=== PATIENT | female | born 1980 | race American Indian/Alaskan Native ===

== ENCOUNTER 2016-07-21 06:42 | Emergency (ER) | payer MEDICAID ==
[2016-07-21 07:45] VITALS: BP 114/80
--- NOTE | 2016-07-21 09:57 | Emergency Department Report ---
HPI - General Chief Complaint: Sore Throat Time Seen by Provider: 07/21/16 09:44 - HPI HPI: Patient here reports sore throat since Wednesday night. Reports pain is located on the LT side of her throat and is radiating into her left ear. She reports chills and said she had a fever last night she says she took some Motrin. Pain is 9 out of 10 and sore. Pain is worse with swallowing. Denies any drooling, difficulty breathing or chest pain. Denies any respiratory symptoms. Denies any cough or nasal congestion. ED Past Medical Hx - Past Medical History Previous Medical History?: No Hx Hypertension: No Hx Congestive Heart Failure: No Hx Diabetes: No Hx Deep Vein Thrombosis: No Hx Renal Disease: No Hx Sickle Cell Disease: No Hx Seizures: No Hx Asthma: No Hx COPD: No Hx HIV: No - Surgical History Past Surgical History?: Yes Additional Surgical History: D&C - Family History Family history: no significant - Social History Smoking Status: Never Smoker Substance Use Type: None - Medications Home Medications: Home Medications Medication Instructions Recorded Confirmed Last Taken Type Hydrocodone Bit/Acetaminophen 1 tab PO Q4-6H PRN #16 tablet 04/19/13 06/10/15 Unknown Rx [Lortab 10-500 Tablet] predniSONE [Deltasone] 20 mg PO TID #9 tablet 04/19/13 06/10/15 Unknown Rx Promethazine [Phenergan TAB] 25 mg PO Q6HR PRN #14 tab 01/02/16 Unknown Rx traMADol [Ultram] 50 mg PO Q6HR PRN #10 tablet 01/02/16 Unknown Rx Amoxicillin [Amoxicillin TAB] 875 mg PO BID #20 tablet 07/21/16 Unknown Rx Ibuprofen [Motrin] 600 mg PO Q8H PRN #15 tablet 07/21/16 Unknown Rx ED Review of Systems ROS: Stated complaint: THROAT SWELLING Other details as noted in HPI Comment: All other systems reviewed and negative Constitutional: chills, fever Eyes: denies: eye discharge ENT: ear pain, throat pain. denies: congestion Respiratory: no symptoms reported Cardiovascular: denies: chest pain, palpitations, edema, syncope Gastrointestinal: denies: abdominal pain, nausea, vomiting Skin: denies: rash Neurological: denies: headache Physical Exam - Physical Exam Vital Signs: Vital Signs 07/21/16 07:42 Temperature 98.4 F Pulse Rate 87 Respiratory 18 Rate Blood Pressure 114/80 O2 Sat by Pulse 100 Oximetry General: This is a 35-year-old female well-nourished well-developed in no acute distress. Physical Exam: Head: Normocephalic atraumatic Mouth: Moist, no pharyngeal exudate with positive erythema. Uvula is midline and oral airway is patent. No gingival enlargement or dental tenderness. No facial swelling. No peritonsillar abscesses. Neck: Supple, no C-spine tenderness, no tracheal deviation. Nontender to palpate.Positive adenopathy Ears: Bilateral TMs pearly montejo.bilateral EAC without any redness swelling or drainage Eyes: Bilateral pupils equal and reactive to light, bilateral EOM intact. Bilateral sclera and conjunctiva without injection. Normal accommodation Nose: Mucosa moist, normal mucosa .positive clear drainage. maxillary and frontal sinus non-tender to palpate. Lungs: Clear to auscultate bilaterally no rhonchi wheezes or rales. Normal work of breathing extremity; No CCE. +2 pulses. No neurovascular compromise Cardiovascular: S1-S2, regular rate rhythm. No murmurs. Skin: clean Dry and intact no rash no lesions Psych: Normal mood and behavior ED Course Vital Signs 07/21/16 07:42 Temperature 98.4 F Pulse Rate 87 Respiratory 18 Rate Blood Pressure 114/80 O2 Sat by Pulse 100 Oximetry - Reevaluation(s) Reevaluation #1: 07/21/16 10:48 She given Motrin 800 mg in emergency room for sore throat. ED Medical Decision Making - Lab Data Positive strep - Medical Decision Making ED course: Patient here complaining of sore throat, fever over the past couple days. Strep test positive. She was discussed with patient. Treatment plan discussed with patient and she is in agreement. See Motrin 800 mg one by mouth. discharged home with prescription for Motrin and amoxicillin and to follow-up with her primary care physician in 2-3 days Critical care attestation.: If time is entered above; I have spent that time in minutes in the direct care of this critically ill patient, excluding procedure time. ED Disposition Clinical Impression: Strep pharyngitis Disposition: DISCHARGED TO HOME OR SELFCARE Is pt being admited?: No Does the pt Need Aspirin: No Condition: Stable Instructions: Strep Throat (ED) Additional Instructions: Please increase her fluid intake. Please gargling with warm salt water Take medication as prescribed. Practice good hand hygiene Prescriptions: Amoxicillin [Amoxicillin TAB] 875 mg PO BID #20 tablet Ibuprofen [Motrin] 600 mg PO Q8H PRN #15 tablet PRN Reason: Pain Referrals: PRIMARY CAREMD [Primary Care Provider] - 2-3 Days SEROTOFF,MD FORREST [Emergency Provider] - 3-5 Days Forms: Work/School Release Form(ED)
[2016-07-21] MEDS ORDERED: MOTRIN PO ONE (10:31)
== END 2016-07-21 11:32 | disposition home or self-care (01) ==
LOC: ED 06:42
DX: J02.0 Streptococcal pharyngitis (principal)
CPT/HCPCS: 87430; 99282

== ENCOUNTER 2017-02-18 07:16 | Day surgery (SDC) | payer MEDICAID ==
[~2017-02-18 07:16] MED LIST: MARCAINE 0.5% INFILTRATI ONE; NACL 0.9% IR ONE
[2017-02-18] MEDS ORDERED: DIPRIVAN 10 MG/ML IV ONE (08:29)
[2017-02-18] MEDS ORDERED: XYLOCAINE MPF 2% ONE (08:30)
[2017-02-18] MEDS ORDERED: SUBLIMAZE ONE (08:30)
[2017-02-18 08:36] LABS: Hematocrit 41.3 % (30.3-42.9); Hemoglobin 13.5 gm/dl (10.1-14.3)
--- NOTE | 2017-02-18 08:40 | Short Stay Summary ---
Short Stay Documentation Date of service: 02/18/17 Narrative H&P: Pt is a 36yo BF LMP 01/23/17 presents for permanent sterilization - History Principal diagnosis: Desires permanent sterilization H&P: obtained from office Past Medical History: No medical history Past Surgical History: No surgical history Social history: no significant social history, single - Allergies and Medications Current Medications: Allergies No Known Allergies Allergy (Verified 02/17/17 07:50) Home Medications Medication Instructions Recorded Confirmed Last Taken Type No Known Home Medications [No 02/17/17 02/17/17 Unknown History Reported Home Medications] - Physical exam General appearance: no acute distress Integumentary: no rash HEENT: Atraumatic Lungs: Clear to auscultation Breasts: deferred Heart: Regular rate Gastrointestinal: normal Female Genitourinary: deferred Rectal Exam: deferred Extremities: no ischemia Neurological: Normal gait, Normal speech - Brief post op/procedure progress note Date of procedure: 02/18/17 Pre-op diagnosis: Desires permanent sterilization Post-op diagnosis: same Procedure: Laproscopic Bilateral Tubal Ligation Anesthesia: GETA Findings: Normal uterus. Normal tubes and ovaries bilaterally. Surgeon: ERIKA WOOD Estimated blood loss: minimal Pathology: none Condition: stable - Hospital course Hospital course: Unremarkable. - Disposition Condition at discharge: Good Disposition: DC-01 TO HOME OR SELFCARE - Discharge Diagnoses (1) Encounter for sterilization Status: Resolved Short Stay Discharge Plan Activity: no restrictions Diet: regular Wound: open to air, keep clean and dry Follow up with: PRIMARY CAREMD [Primary Care Provider] - 7 Days ERIKA WOOD MD [Staff Physician] - 14 Days Prescriptions: HYDROcodone/APAP 5-325 [[place] 5/325] 1 each PO Q6HR PRN #20 tablet PRN Reason: Pain
--- NOTE | 2017-02-18 08:49 | Anesthesia Consultation ---
Anesthesia Consult and Med Hx Date of service: 02/18/17 - Airway Anesthetic Teeth Evaluation: Good ROM Head & Neck: Adequate Mental/Hyoid Distance: Adequate Mallampati Class: Class II Intubation Access Assessment: Good - Pulmonary Exam CTA: Yes - Cardiac Exam Cardiac Exam: No Murmur - Pulmonary Hx Smoking: Yes Hx Asthma: No COPD: No Hx Pneumonia: No - Cardiovascular System Hx Hypertension: No - Central Nervous System Hx Seizures: No Hx Psychiatric Problems: No - Endocrine Hx Renal Disease: No Hx End Stage Renal Disease: No Hx Hypothyroidism: No Hx Hyperthyroidism: No - Hematic Hx Anemia: No Hx Sickle Cell Disease: No - Other Systems Hx Alcohol Use: Yes (occas) Hx Cancer: No
[2017-02-18] MEDS ORDERED: MARCAINE 0.5% 30 ML INFILTRATI ONE (08:53)
--- NOTE | 2017-02-18 08:56 | Anesthesia Day of Surgery ---
Anesthesia Day of Surgery - Day of Surgery Patient Examined: Yes Patient H&P Reviewed: Yes Patient is NPO: Yes
[2017-02-18] MEDS ORDERED: ANCEF/STERILE WATER 2 GM/20 ML 2 GM/20 ML SYRINGE IV NR (09:00)
[2017-02-18] MEDS ORDERED: PEPCID PO NR (09:00)
[2017-02-18] MEDS ORDERED: LACTATED RINGERS 1,000 ML IV SCH (09:00)
[2017-02-18] MEDS ORDERED: VERSED IV NR (09:00)
[2017-02-18] MEDS ORDERED: DECADRON ONE ×2 (09:27→09:28)
[2017-02-18] MEDS ORDERED: ZEMURON IV ONE (09:28)
[2017-02-18] MEDS ORDERED: QUELICIN ONE (09:30)
[2017-02-18] MEDS ORDERED: MARCAINE 0.5% INFILTRATI ONE (09:39)
[2017-02-18] MEDS ORDERED: ZOFRAN ONE (09:42)
[2017-02-18] MEDS ORDERED: NACL 0.9% IR ONE (09:44)
[2017-02-18] MEDS ORDERED: ROBINUL ONE (09:46)
[2017-02-18] MEDS ORDERED: TORADOL ONE (09:50)
--- NOTE | 2017-02-18 10:02 | Operative Report ---
Operative Report Operative Report: PREOPERATIVE DIAGNOSIS: Desires permanent sterilization POSTOPERATIVE DIAGNOSIS: Same OPERATIVE PROCEDURE: Laparoscopic bilateral tubal ligation. SURGEON: Stephon Ramsay MD ANESTHESIA: Gen. endotracheal intubation ANESTHESIOLOGIST: Dr. Torres ESTIMATED BLOOD LOSS: Minimal FINDINGS: Normal uterus. Normal tubes and ovaries bilaterally. COMPLICATIONS: None COUNTS: Correct x3. PROCEDURE: After the patient was correctly identified and after general anesthesia was administered, the patient was prepped and draped in usual sterile fashion and placed in dorsal lithotomy position. First, the bladder was emptied using a straight catheter. Next, a speculum was placed in the vaginal vault and the anterior lip of the cervix was grasped using a single- tooth tenaculum. The uterine manipulator was then placed and the tenaculum and speculum were removed. Attention was then turned to the abdomen where first a periumbilical incision was made using a skin knife, and the Optiview trocar was inserted under direct visualization. After an adequate amount of abdominal insufflation, visualization of the pelvic organs found the uterus to be normal, and the tubes and ovaries to be normal bilaterally. Next, the left fallopian tube was grasped using the Kleppingers, and after identifying the fimbriated end of the left tube, this tube was cauterized in 3 continuous places along the proximal portion of the left tube. The same procedure was performed on the right fallopian tube after first identifying the fimbriated end of the right tube. This tube was also cauterized in 3 continuous places along the proximal portion of the right tube. At this point, the procedure was then considered complete. All instruments were removed from the abdomen. The abdomen was deflated and the periumbilical incision was closed using 0 Vicryl suture in a [id number] configuration on the fascia, followed by 4-0 Monocryl suture in subcuticular fashion on the skin. The incision was also infiltrated using 0.5% Marcaine solution. The uterine manipulator was removed. The patient tolerated the procedure well and was transferred to recovery room stable condition.
[2017-02-18] MEDS: DILAUDID IV PRN ×3 (10:20→10:40)
--- NOTE | 2017-02-18 10:57 | Post Anesthesia Evaluation ---
- Post Anesthesia Evaluation Patient Participated: Yes Airway Patent: Yes Stable Respiratory Function: Yes Nausea/Vomiting: No Temp > 96.8F: Yes Pain Manageable: Yes Adequeate Hydration: Yes Anesthesia Complications: No
[2017-02-18 17:57] VITALS: BP 126/81
== END 2017-02-18 12:34 | disposition home or self-care (01) ==
LOC: OR 07:16
PROVIDERS: ATTEND Obstetrics & Gynecology
DX: Z30.2 Encounter for sterilization (principal); Z87.891 Personal history of nicotine dependence
CPT/HCPCS: 36415; 58670; 81025; 85014; 85018; J0330; J0690; J1100; J1170; J1885; J2250; J2405; J2704; J3010; J7120